=== PATIENT | female | born 1965 | race Caucasian/White ===

== ENCOUNTER 2019-06-20 07:31 | Outpatient (CLI) | payer OTHER, SELFPAY ==
[2019-06-20 07:56] LABS: Basophils Percent Auto 0.4 % (0.2-1.2); Eosinophils Absolute Auto 0.1 K/mm3 (0-0.3); Eosinophils Percent Auto 2.1 % (0-4.4); Hematocrit 35.6 % (37.0-47.0); Immature Granulocyte Absolute 0.01 K/mm3 (0.00-0.031); Immature Granulocyte Percent A 0.2 % (0-0.5); Lymphocytes Absolute Auto 1.58 K/mm3 (0.9-3.2); Lymphocytes Percent Auto 33.3 % (18.3-44.2); Mean Corpuscular HGB Conc 30.9 g/dl (32-36); Mean Corpuscular Hemoglobin 26.7 pg (26-34); Mean Corpuscular Volume 86.4 fl (80-100); Monocytes Absolute Auto 0.3 K/mm3 (0.1-0.6); Monocytes Percent Auto 6.5 % (2.6-8.5); Neutrophils Absolute Auto 2.7 K/mm3 (1.3-6.7); Neutrophils Percent Auto 57.5 % (45.5-73.1); Platelet Count Result 191 k/mm3 (150-375); Red Blood Count 4.12 M/mm3 (4.2-5.4); Red Cell Distribution Width 15.3 % (11.5-14.5); White Blood Count 4.7 K/mm3 (4.5-10.0)
[2019-06-20 08:07] LABS: Alanine Aminotransferase 72 U/L (4-35); Albumin Level 3.8 g/dL (3.5-5.1); Alkaline Phosphatase 134 U/L (38-126); Aspartate Amino Transferase 309 U/L (14-36); Bilirubin,Total 0.4 mg/dL (0.2-1.3); Blood Urea Nitrogen 11 mg/dL (7-17); Calcium 8.7 mg/dL (8.4-10.2); Carbon Dioxide 31 mmol/L (22-30); Chloride 98 mmol/L (98-107); Cholesterol 106 mg/dL (0-200); Estimated Glomerular Filt Rate > 60; Glucose 91 mg/dL (65-105); HDL Direct 46 mg/dL; Magnesium 1.8 mg/dL (1.6-2.3); Potassium 3.6 mmol/L (3.4-5.0); Sodium 140 mmol/L (137-145); Triglycerides 68 mg/dL (<150)
[2019-06-20 08:18] LABS: LDL Cholesterol Direct 52 mg/dL
== END 2019-06-20 07:32 | disposition home or self-care (01) ==
PROVIDERS: PCP Nurse Practitioner Family; Visit Provider Family Medicine
DX: E66.9 Obesity, unspecified (principal); F41.9 Anxiety disorder, unspecified; I10 Essential (primary) hypertension; Z13.1 Encounter for screening for diabetes mellitus; Z13.6 Encounter for screening for cardiovascular disorders; Z13.820 Encounter for screening for osteoporosis
CPT/HCPCS: 36415; 80053; 80061; 82607; 83735; 84443; 85025

== ENCOUNTER 2019-10-19 00:17 | Outpatient (CLI) | payer OTHER, SELFPAY ==
[2019-10-19 18:54] LABS: SARS-CoV-2 RNA PCR Negative
== END 2019-10-19 00:18 | disposition home or self-care (01) ==
LOC: ANHCOVIDDT 00:17
PROVIDERS: PCP Nurse Practitioner Family; Visit Provider Internal Medicine Gastroenterology
DX: Z01.812 Encounter for preprocedural laboratory examination (principal); Z11.59 Encounter for screening for other viral diseases
CPT/HCPCS: 87635; C9803; U0003

== ENCOUNTER 2019-10-21 02:25 | Day surgery (SDC) | payer OTHER, SELFPAY ==
[2019-10-16 13:35] VITALS: BMI 37.6
[2019-10-21 06:48] VITALS: BP 152/81; PULSE 64; RESP 18; TEMP 36.6; O2SAT 100
[2019-10-21] MEDS: LACTATED RINGERS 1,000 ML 150 ML IV CONT (07:05)
--- NOTE | 2019-10-21 07:24 | PM.HPGS ---
History of Present Illness History of Present Illness Consent: Risks, benefits, and alternatives have been discussed and questions answered. Patient agrees to proceed with procedure. Chief complaint: Blood In Stool Narrative: Rach Matos is a 53 year old female With blood in her stools. A recent stool Hemoccult was positive. One month ago she was experiencing pain in the right flank and right lower quadrant of her abdomen. She was feeling bad and therefore went to emergency room. An ultrasound and CT scan were said to be negative. She has noticed that when she urinates she will pass of clot of dark blood. She is not sure if this comes from her bladder vagina rectum. Only once t did she passed this type of a clot when she was having a bowel movement. in the past she has battled chronic iron deficiency anemia but she tells me that her counts are normal at this time. [facility] Family History Family History Father Family history of malignant neoplasm Family history of coronary artery disease Sibling Family history of malignant neoplasm Social History Social History Smoking status: Never smoker Alcohol intake: never Gender identity (if verbalized by the patient): Female Meds Home Medications and Allergies Home Medications Medication Instructions Recorded Confirmed Type ibuprofen-diphenhydramine HCl 1 cap PO HS 10/16/19 10/16/19 History [Ibuprofen PM] sertraline 75 mg PO DAILY 10/16/19 10/16/19 History nitrofurantoin monohyd/m-cryst 100 mg PO BID 10/21/19 10/21/19 History Allergies Allergy/AdvReac Type Severity Reaction Status Date / Time cephalexin Allergy Mild SOB Verified 10/21/19 06:46 meperidine Allergy Mild Nausea Verified 10/21/19 06:46 morphine Allergy Unknown Nausea Verified 10/21/19 06:46 Vital Signs Vital Signs - 24 hr 10/21/19 06:48 Temperature 36.6 C Pulse Rate 64 Respiratory Rate 18 Blood Pressure 152/81 H Pulse Oximetry 100 Exam Resp: Auscultation: clear to auscultation bilaterally Cardio: Rate: regular rate Rhythm: regular rhythm GI: GI Palp: Yes Soft to palpation and No Tenderness to palpation present (GI) Assessment and Plan Assessment and plan (1) Blood in stool: Code(s): K92.1 - Melena Status: Acute Assessment and Plan: Colonoscopy with possible biopsy or polypectomy or cautery or injection of substances.
--- NOTE | 2019-10-21 07:54 | WPDANESEPPF ---
Anes - Initial Pre Proc Eval Procedure: Operation Date: 10/21/19 08:00 Proposed Procedures p Colonoscopy - Richardson Lozano MD Date/Time: 10/21/19 07:54 Surgeon: Richardson Lozano MD Pre Op Diagnosis: Blood In Stool Patient Data Age: 53 Gender: F Height: 5 ft 8 in Weight: 115.9 kg Last Vital Signs Temp 97.8 F 10/21/19 06:48 Pulse 64 10/21/19 06:48 Resp 18 10/21/19 06:48 BP 152/81 H 10/21/19 06:48 Pulse Ox 100 10/21/19 06:48 Allergies Allergy/AdvReac Type Severity Reaction Status Date / Time cephalexin Allergy Mild SOB Verified 10/21/19 06:46 meperidine Allergy Mild Nausea Verified 10/21/19 06:46 morphine Allergy Unknown Nausea Verified 10/21/19 06:46 Home Medications Medication Instructions Recorded Confirmed Type ibuprofen-diphenhydramine HCl 1 cap PO HS 10/16/19 10/16/19 History [Ibuprofen PM] sertraline 75 mg PO DAILY 10/16/19 10/16/19 History nitrofurantoin monohyd/m-cryst 100 mg PO BID 10/21/19 10/21/19 History Patient hx anesthesia problems: none Family hx anesthesia problems: none PMFSH Past Medical History Medical History (Updated 10/21/19 @ 07:54 by Ricci Grayson MD) Anemia Anxiety Obesity Family History Family History Father Family history of malignant neoplasm Family history of coronary artery disease Sibling Family history of malignant neoplasm Social History Social History Smoking status: Never smoker Alcohol intake: never Gender identity (if verbalized by the patient): Female Anes - Eval Final PreProcedure Day of Procedure 10/21/19 07:54 Patient weight: obese Heart: regular rate and rhythm Lungs: clear to auscultation Airway: Mallampati scale class III Neurological: alert and oriented Last oral intake: >/= 8 hours ASA classification: III Emergent: no Anesthetic plan: proceed Anesthesia type and monitoring: general GIVS and standard monitoring Informed Consent: The patient's anesthetic plan and its attendant risks and benefits were discussed with the patient/family/POA. Questions were solicited and answers provided to the satisfaction of the patient/family/POA.
[2019-10-21 08:16] VITALS: BP 141/79; PULSE 67; RESP 20; O2SAT 100
[2019-10-21 08:26] VITALS: BP 146/87; PULSE 64; RESP 17; O2SAT 100
[2019-10-21 08:36] VITALS: BP 159/90; PULSE 66; RESP 18; O2SAT 100
== END 2019-10-21 08:56 | disposition home or self-care (01) ==
PROVIDERS: PCP Nurse Practitioner Family; Visit Provider Internal Medicine Gastroenterology
PROC: 0DJD8ZZ Inspection of Lower Intestinal Tract, Via Natural or Artificial Opening Endoscopic (ICD-10-PCS; CPT 45378; principal; 2019-10-21 08:00)
DX: K92.1 Melena (principal); K64.8 Other hemorrhoids; F41.9 Anxiety disorder, unspecified; E66.9 Obesity, unspecified; Z68.38 Body mass index [BMI] 38.0-38.9, adult
CPT/HCPCS: 45378; J2704; J7120

== ENCOUNTER 2019-11-11 01:16 | Outpatient (CLI) | payer OTHER, SELFPAY ==
[2019-11-11 18:39] LABS: SARS-CoV-2 RNA PCR Negative
== END 2019-11-11 01:17 | disposition home or self-care (01) ==
LOC: ANHCOVIDDT 01:16
PROVIDERS: PCP Nurse Practitioner Family; Visit Provider Internal Medicine Gastroenterology
DX: Z01.812 Encounter for preprocedural laboratory examination (principal); Z11.59 Encounter for screening for other viral diseases
CPT/HCPCS: 87635; C9803; U0003

== ENCOUNTER 2019-11-13 02:28 | Day surgery (SDC) | payer OTHER, SELFPAY ==
[2019-11-05 13:11] VITALS: BMI 40.4
[2019-11-13 08:24] VITALS: BP 149/70; PULSE 72; RESP 18; TEMP 36.3; O2SAT 99
[2019-11-13] MEDS: LACTATED RINGERS 1,000 ML 150 ML IV CONT (08:46)
--- NOTE | 2019-11-13 08:50 | P.PNAN_ITS ---
Anes - Initial Pre Proc Eval Procedure: Operation Date: 11/13/19 09:30 Proposed Procedures p Colonoscopy - Richardson Lozano MD Date/Time: 11/13/19 08:50 Surgeon: Richardson Lozano MD Pre Op Diagnosis: Blood In Stool Patient Data Age: 53 Gender: F Height: 5 ft 8 in Weight: 116.1 kg Last Vital Signs Temp 97.4 F L 11/13/19 08:24 Pulse 72 11/13/19 08:24 Resp 18 11/13/19 08:24 BP 149/70 H 11/13/19 08:24 Pulse Ox 99 11/13/19 08:24 Allergies Allergy/AdvReac Type Severity Reaction Status Date / Time cephalexin Allergy Mild SOB Verified 11/13/19 08:23 meperidine Allergy Mild Nausea Verified 11/13/19 08:23 morphine Allergy Unknown Nausea Verified 11/13/19 08:23 Home Medications Medication Instructions Recorded Confirmed Type Ibuprofen PM 1 cap PO HS 10/16/19 11/05/19 History sertraline 75 mg PO DAILY 10/16/19 11/05/19 History Patient hx anesthesia problems: none Family hx anesthesia problems: none REPLACED BY [facility] Past Medical History Medical History (Updated 10/21/19 @ 07:54 by Ricci Grayson MD) Anemia Anxiety Obesity Social History Social History Smoking status: Never smoker Alcohol intake: never Gender identity (if verbalized by the patient): Female Anes - Eval Final PreProcedure Day of Procedure 11/13/19 08:50 Patient weight: obese Heart: regular rate and rhythm Lungs: clear to auscultation Airway: Mallampati scale class II Neurological: alert and oriented Last oral intake: >/= 8 hours ASA classification: II Emergent: no Anesthetic plan: proceed Anesthesia type and monitoring: general GIVS and standard monitoring Informed Consent: The patient's anesthetic plan and its attendant risks and benefits were discussed with the patient/family/POA. Questions were solicited and answers provided to the satisfaction of the patient/family/POA.
[2019-11-13 10:03] VITALS: BP 128/68; PULSE 70; RESP 18; O2SAT 97
[2019-11-13 10:13] VITALS: BP 139/74; PULSE 70; RESP 18; O2SAT 100
[2019-11-13 10:23] VITALS: BP 147/82; PULSE 63; RESP 18; O2SAT 100
== END 2019-11-13 10:36 | disposition home or self-care (01) ==
PROVIDERS: PCP Nurse Practitioner Family; Visit Provider Internal Medicine Gastroenterology
PROC: 0DJD8ZZ Inspection of Lower Intestinal Tract, Via Natural or Artificial Opening Endoscopic (ICD-10-PCS; CPT 45378; principal; 2019-11-13 09:30)
DX: K92.1 Melena (principal); K57.30 Diverticulosis of large intestine without perforation or abscess without bleeding; K64.8 Other hemorrhoids; F41.9 Anxiety disorder, unspecified; E66.9 Obesity, unspecified; Z68.38 Body mass index [BMI] 38.0-38.9, adult
CPT/HCPCS: 45378; J2704; J7120

== ENCOUNTER 2020-01-05 08:53 | Outpatient (CLI) | payer OTHER, SELFPAY ==
[2020-01-05 10:08] LABS: Basophils Percent Auto 0.8 % (0.2-1.2); Eosinophils Absolute Auto 0.1 K/mm3 (0-0.3); Eosinophils Percent Auto 1.3 % (0-4.4); Hematocrit 34.9 % (37.0-47.0); Hemoglobin 10.5 g/dL (12.0-15.0); Lymphocytes Absolute Auto 1.11 K/mm3 (0.9-3.2); Lymphocytes Percent Auto 29.2 % (18.3-44.2); Mean Corpuscular HGB Conc 30.1 g/dl (32-36); Mean Corpuscular Hemoglobin 25.9 pg (26-34); Mean Platelet Volume 12.8 fl (7.4-10.4); Monocytes Absolute Auto 0.3 K/mm3 (0.1-0.6); Monocytes Percent Auto 7.4 % (2.6-8.5); Neutrophils Absolute Auto 2.3 K/mm3 (1.3-6.7); Neutrophils Percent Auto 61.3 % (45.5-73.1); Platelet Count Result 204 k/mm3 (150-375); Red Blood Count 4.06 M/mm3 (4.2-5.4); Red Cell Distribution Width 14.4 % (11.5-14.5); White Blood Count 3.8 K/mm3 (4.5-10.0)
[2020-01-05 10:20] LABS: Alanine Aminotransferase 15 U/L (4-35); Alkaline Phosphatase 99 U/L (38-126); Anion Gap 7 mmol/L (8-16); Aspartate Amino Transferase 26 U/L (14-36); Bilirubin,Total 0.4 mg/dL (0.2-1.3); Blood Urea Nitrogen 13 mg/dL (7-17); Calcium 8.8 mg/dL (8.4-10.2); Carbon Dioxide 30 mmol/L (22-30); Chloride 102 mmol/L (98-107); Cholesterol 123 mg/dL (0-200); Estimated Glomerular Filt Rate > 60; Glucose 92 mg/dL (65-105); HDL Direct 43 mg/dL; Potassium 4.1 mmol/L (3.4-5.0); Sodium 139 mmol/L (137-145); Triglycerides 68 mg/dL (<150)
[2020-01-05 10:31] LABS: LDL Cholesterol Direct 60 mg/dL
== END 2020-01-05 08:54 | disposition home or self-care (01) ==
LOC: ANHLAB 08:56
PROVIDERS: PCP Nurse Practitioner Family; Visit Provider Family Medicine
DX: E87.6 Hypokalemia (principal); F41.1 Generalized anxiety disorder; Z79.899 Other long term (current) drug therapy; R53.83 Other fatigue; R10.31 Right lower quadrant pain; R10.32 Left lower quadrant pain
CPT/HCPCS: 36415; 80053; 80061; 82607; 85025

== ENCOUNTER 2020-01-23 07:57 | Outpatient (CLI) | payer OTHER, SELFPAY ==
[2020-01-23 09:43] LABS: Iron 26 ug/dL (37-170); Percent Iron Saturation 6 % (20-50)
[2020-01-23 10:37] LABS: Ferritin 6.94 ng/mL (11.1-264)
[2020-01-25 12:53] LABS: Folic Acid 5.2 ng/mL (2.76->20)
== END 2020-01-23 07:58 | disposition home or self-care (01) ==
LOC: ANHLAB 07:59
PROVIDERS: PCP Nurse Practitioner Family; Visit Provider Family Medicine
DX: D50.9 Iron deficiency anemia, unspecified (principal); R53.83 Other fatigue
CPT/HCPCS: 36415; 82728; 82746; 83540; 83550

== ENCOUNTER 2021-02-23 07:56 | Outpatient (RCR) | payer OTHER, SELFPAY ==
[2021-02-22 08:29] LABS: Basophils Percent Auto 0.6 % (0.2-1.2); Eosinophils Absolute Auto 0.1 K/mm3 (0-0.3); Eosinophils Percent Auto 1.6 % (0-4.4); Hematocrit 26.5 % (37.0-47.0); Hemoglobin 7.7 g/dL (12.0-15.0); Immature Granulocyte Absolute 0.01 K/mm3 (0.00-0.031); Immature Granulocyte Percent A 0.3 % (0-0.5); Immature Platelet Fraction Pct 8.6 % (0.9-11.2); Lymphocytes Absolute Auto 1.06 K/mm3 (0.9-3.2); Lymphocytes Percent Auto 34.3 % (18.3-44.2); Mean Corpuscular HGB Conc 29.1 g/dl (32-36); Mean Corpuscular Hemoglobin 20.6 pg (26-34); Mean Corpuscular Volume 70.9 fl (80-100); Mean Platelet Volume 11.4 fl (7.4-10.4); Monocytes Absolute Auto 0.2 K/mm3 (0.1-0.6); Monocytes Percent Auto 7.8 % (2.6-8.5); Neutrophils Absolute Auto 1.7 K/mm3 (1.3-6.7); Neutrophils Percent Auto 55.4 % (45.5-73.1); Platelet Count Result 208 k/mm3 (150-375); Red Blood Count 3.74 M/mm3 (4.2-5.4); Red Cell Distribution Width 18.5 % (11.5-14.5); White Blood Count 3.1 K/mm3 (4.5-10.0)
[2021-02-22 08:54] LABS: Alanine Aminotransferase 13 U/L (4-35); Albumin Level 3.8 g/dL (3.5-5.1); Alkaline Phosphatase 93 U/L (38-126); Anion Gap 7 mmol/L (8-16); Aspartate Amino Transferase 29 U/L (14-36); Bilirubin,Total 0.3 mg/dL (0.2-1.3); Blood Urea Nitrogen 5 mg/dL (7-17); Calcium 8.9 mg/dL (8.4-10.2); Carbon Dioxide 31 mmol/L (22-30); Chloride 104 mmol/L (98-107); Estimated Glomerular Filt Rate > 60; Glucose 88 mg/dL (65-110); Magnesium 1.9 mg/dL (1.6-2.3); Phosphorus 4.3 mg/dL (2.5-4.5); Sodium 142 mmol/L (137-145)
[2021-02-22 09:03] LABS: Parathyroid Intact 90.9 pg/mL (7.5-53.5)
[2021-02-22 09:08] LABS: Vitamin D 25 Hydroxy 44.7 ng/mL
[2021-02-22 09:26] LABS: Hypochromasia 2+ (NORMAL); Ovalocytes 1+ (NORMAL); Platelet Estimate Adequate (Adequate); Poikilocytosis 1+ (NORMAL)
[2021-02-22 11:31] LABS: Iron 12 ug/dL (37-170)
[2021-02-22 11:58] LABS: Prealbumin 13.7 mg/dL (17.6-36.0)
[2021-02-22 12:05] LABS: Ferritin 4.23 ng/mL (11.1-264)
[2021-02-25 00:40] LABS: Zinc 63 mcg/dL (60-130)
[2021-02-25 07:51] LABS: Red Blood Cell Folate 591 ng/mL RBC (>280)
[2021-02-25 16:14] LABS: Alpha-Tocopherol 4.6 mg/L (5.7-19.9); Beta-Gamma Tocopherol <1.0 mg/L (<=4.3); Vitamin A 21 mcg/dL (38-98)
[2021-02-27 05:13] LABS: Vitamin B1 <6 nmol/L (8-30)
[2021-03-03 20:31] LABS: Vitamin K1 74 pg/mL (130-1500)
== END 2021-02-23 08:00 | disposition home or self-care (01) ==
LOC: ANHLAB 07:56
PROVIDERS: PCP Nurse Practitioner Family
DX: E55.9 Vitamin D deficiency, unspecified (principal); E66.9 Obesity, unspecified; E61.8 Deficiency of other specified nutrient elements; K90.9 Intestinal malabsorption, unspecified; Z98.84 Bariatric surgery status; E56.9 Vitamin deficiency, unspecified
CPT/HCPCS: 36415; 80053; 82306; 82525; 82607; 82728; 82747; 83540; 83735; 83970; 84100; 84134; 84425; 84446; 84590; 84597; 84630; 85025; 85055

== ENCOUNTER 2022-06-02 10:06 | Outpatient (CLI) | payer OTHER, SELFPAY ==
[2022-06-02 10:33] LABS: Hematocrit 32.6 % (37.0-47.0); Hemoglobin 9.9 g/dL (12.0-15.0); Mean Corpuscular HGB Conc 30.4 g/dl (32-36); Mean Corpuscular Hemoglobin 25.7 pg (26-34); Mean Corpuscular Volume 84.7 fl (80-100); Mean Platelet Volume 11.9 fl (7.4-10.4); Platelet Count Result 203 k/mm3 (150-375); Red Blood Count 3.85 M/mm3 (4.2-5.4); Red Cell Distribution Width 15.2 % (11.5-14.5); White Blood Count 3.2 K/mm3 (4.5-10.0)
[2022-06-02 10:45] LABS: Alanine Aminotransferase 15 U/L (6-35); Albumin Level 3.9 g/dL (3.5-5.1); Alkaline Phosphatase 103 U/L (38-126); Anion Gap 5 mmol/L (8-16); Aspartate Amino Transferase 26 U/L (14-36); Bilirubin,Total 0.4 mg/dL (0.2-1.3); Blood Urea Nitrogen 8 mg/dL (7-17); Calcium 8.2 mg/dL (8.4-10.2); Carbon Dioxide 30 mmol/L (22-30); Chloride 105 mmol/L (98-107); Estimated Glomerular Filt Rate > 60; Glucose 93 mg/dL (65-110); Potassium 3.7 mmol/L (3.4-5.0); Sodium 140 mmol/L (137-145)
[2022-06-02 11:01] LABS: Parathyroid Intact 94.2 pg/mL (7.5-53.5)
[2022-06-02 11:48] LABS: Iron 16 ug/dL (37-170)
[2022-06-02 11:51] LABS: Folic Acid 9.6 ng/mL (2.76->20)
[2022-06-02 11:54] LABS: Percent Iron Saturation 4 % (20-50)
[2022-06-02 11:58] LABS: Vitamin D 25 Hydroxy 56.4 ng/mL
[2022-06-02 12:20] LABS: Ferritin 4.72 ng/mL (11.1-264)
[2022-06-05 19:50] LABS: Zinc 62 mcg/dL (60-130)
[2022-06-06 21:05] LABS: Beta-Gamma Tocopherol <1.0 mg/L (<=4.3); Vitamin A 27 mcg/dL (38-98)
[2022-06-09 14:23] LABS: Vitamin B1 <6 nmol/L (8-30)
[2022-06-12 04:34] LABS: Vitamin K1 <50 pg/mL (130-1500)
== END 2022-06-02 10:07 | disposition home or self-care (01) ==
LOC: ANHLAB 10:06
PROVIDERS: PCP Nurse Practitioner Family
DX: E56.9 Vitamin deficiency, unspecified (principal); E55.9 Vitamin D deficiency, unspecified; K91.2 Postsurgical malabsorption, not elsewhere classified; Z98.84 Bariatric surgery status; E66.01 Morbid (severe) obesity due to excess calories
CPT/HCPCS: 36415; 80053; 82306; 82525; 82607; 82728; 82746; 83540; 83550; 83735; 83970; 84134; 84425; 84446; 84590; 84597; 84630; 85027